=== PATIENT | female | born 1985 | race American Indian/Alaskan Native ===

== ENCOUNTER 2017-04-19 21:53 | Outpatient (CLI) | payer MEDICAID ==
[2017-04-19] MEDS ORDERED: LACTATED RINGERS 1,000 ML IV ONE (22:03)
[2017-04-19 22:46] VITALS: BP 130/68
[2017-04-19 22:58] LABS: Bacteria,Urine 1+ /HPF (Negative); Bilirubin,Urine NEG (Negative); Blood,Urine NEG (Negative); Color,Urine Yellow (Yellow); Mucus,Urine 1+ /HPF; Nitrite,Urine NEG (Negative); Urobilinogen,Urine < 2.0 mg/dL (<2.0)
[2017-04-19] MEDS ORDERED: IMODIUM PO ONE (23:00)
[2017-04-19] MEDS ORDERED: ZOFRAN IV ONE (23:05)
[2017-04-19] MEDS ORDERED: IMODIUM A-D PO ONE (23:08)
== END 2017-04-20 00:25 | disposition home or self-care (01) ==
LOC: TRG 21:53
PROVIDERS: ATTEND Obstetrics & Gynecology
DX: O21.2 Late vomiting of pregnancy (principal); Z3A.28 28 weeks gestation of pregnancy
CPT/HCPCS: 81001; 96360; 96361; 96374; J2405; J7120; 59025

== ENCOUNTER 2017-05-30 13:15 | Outpatient (CLI) | payer MEDICAID ==
[2017-05-30] MEDS ORDERED: LACTATED RINGERS 500 ML IV ONE (15:46)
[2017-05-30 17:43] LABS: Basophils % (Auto) 0.4 % (0.0-1.8); Eosinophils # (Auto) 0.1 K/mm3 (0.0-0.4); Eosinophils % (Auto) 1.3 % (0.0-4.3); Hematocrit 33.8 % (30.3-42.9); Hemoglobin 10.6 gm/dl (10.1-14.3); Lymphocytes # (Auto) 1.7 K/mm3 (1.2-5.4); Lymphocytes % (Auto) 23.3 % (13.4-35.0); Mean Corpuscular HGB Conc 31 % (30-34); Monocytes # (Auto) 0.5 K/mm3 (0.0-0.8); Monocytes % (Auto) 6.4 % (0.0-7.3); Red Blood Count 4.88 M/mm3 (3.65-5.03); Red Cell Distribution Width 17.2 % (13.2-15.2)
[2017-05-30 17:46] LABS: Mean Corpuscular Hemoglobin 22 pg (28-32); Mean Corpuscular Volume 69 fl (79-97); Platelet Count 218 K/mm3 (140-440)
--- NOTE | 2017-05-30 17:52 | Ultrasound Report ---
FINAL REPORT EXAM: US OB BPP WO NON-STRESS HISTORY: well being TECHNIQUE: Biophysical profile obstetrical ultrasound PRIORS: None. FINDINGS: LMP 10/01/2016 clinical Age: 34 W 3 D LMP EDC 10/01/2016 Biophysical profile scoring 2 movement 2 tone 2 breathing 2 fluid 2/2 overall score Cardiac motion: 137 BPM using M-mode doppler IMPRESSION: Single intrauterine viable with an approximate age of 34 weeks 3 days. Biophysical profile score is 8/8
--- NOTE | 2017-05-30 17:56 | Ultrasound Report ---
FINAL REPORT EXAM: US OB LIMITED HISTORY: well being TECHNIQUE: limited obstetrical ultrasound PRIORS: None. FINDINGS: LMP: 10/01/2016 clinical Age: 34 W 3 D LMP EDC 07/08/2017 Presentation: Cephalic Activity: Monitored Placental location: No evidence for placenta previa Cardiac motion: 137 BPM using M-mode doppler Amniotic Fluid Volume: Adequate CHERY 13.6 cm IMPRESSION: Single intrauterine viable with an approximate age of 34 weeks 3 days.
[2017-05-30 18:00] LABS: Alanine Aminotransferase 9 units/L (7-56); Uric Acid 4.8 mg/dL (3.5-7.6)
[2017-05-30 18:27] VITALS: BP 145/82
== END 2017-05-30 18:37 | disposition home or self-care (01) ==
LOC: TRG 13:15
PROVIDERS: ATTEND Obstetrics & Gynecology
DX: O47.03 False labor before 37 completed weeks of gestation, third trimester (principal); Z3A.34 34 weeks gestation of pregnancy
CPT/HCPCS: 36415; 59025; 76815; 76819; 82565; 83615; 84156; 84450; 84460; 84550; 85025; 86850; 86900; 86901

== ENCOUNTER 2017-06-16 17:47 | Outpatient (CLI) | payer MEDICAID ==
[2017-06-16] MEDS ORDERED: NORMOSOL-R PH 7.4 1,000 ML IV ONE (18:58)
[2017-06-16] MEDS ORDERED: BENADRYL PO NR (19:00)
[2017-06-16 19:02] LABS: Hematocrit 32.2 % (30.3-42.9); Hemoglobin 10.1 gm/dl (10.1-14.3); Mean Corpuscular HGB Conc 31 % (30-34); Platelet Count 213 K/mm3 (140-440); Red Blood Count 4.75 M/mm3 (3.65-5.03); Red Cell Distribution Width 17.5 % (13.2-15.2)
[2017-06-16 19:15] LABS: Bilirubin,Urine NEG (Negative); Blood,Urine NEG (Negative); Color,Urine Yellow (Yellow); Mean Corpuscular Hemoglobin 21 pg (28-32); Mean Corpuscular Volume 68 fl (79-97); Mucus,Urine FEW /HPF; Protein,Urine <15 mg/dL mg/dL (Negative); RBC,Urine < 1.0 /HPF (0.0-6.0); Urobilinogen,Urine < 2.0 mg/dL (<2.0)
[2017-06-16 19:19] LABS: Alanine Aminotransferase 10 units/L (7-56); Uric Acid 5.3 mg/dL (3.5-7.6)
[2017-06-16 19:58] VITALS: BP 148/92
[2017-06-16] MEDS ORDERED: TYLENOL PO ONE (20:00)
== END 2017-06-16 21:00 | disposition home or self-care (01) ==
LOC: TRG 17:47 → LD 17:48 → TRG 21:00
PROVIDERS: ATTEND Obstetrics & Gynecology
DX: O47.03 False labor before 37 completed weeks of gestation, third trimester (principal); Z3A.36 36 weeks gestation of pregnancy
CPT/HCPCS: 36415; 59025; 81001; 82565; 83615; 84450; 84460; 84550; 85027; 96360

== ENCOUNTER 2017-06-21 17:33 | Inpatient (IN) | payer MEDICAID ==
[2017-06-21] MEDS ORDERED: SUBLIMAZE IV PRN (17:55)
[2017-06-21] MEDS ORDERED: NARCAN 0.4 MG/1 ML IV PRN (17:55)
[2017-06-21] MEDS ORDERED: ZOFRAN IV PRN (17:55)
[2017-06-21] MEDS ORDERED: ePHEDrine SULFATE IV PRN (17:55)
[2017-06-21] MEDS ORDERED: BRETHINE SUB-Q PRN (17:55)
[2017-06-21] MEDS ORDERED: MINERAL OIL PO PRN (17:55)
[2017-06-21] MEDS ORDERED: BRETHINE IVP PRN (17:55)
[2017-06-21] MEDS ORDERED: STADOL IV PRN (17:55)
[2017-06-21] MEDS ORDERED: XYLOCAINE 2% INFILTRATI ONE (17:55)
[2017-06-21] MEDS ORDERED: PITOCin/NS 20 UNIT/1000ML DRIP 20 UNITS/1,000 ML BAG IV SCH (18:00)
[2017-06-21] MEDS ORDERED: PITOCin/NS 30 UNIT/500ML 30 UNITS/500 ML BAG IV SCH (18:00)
--- NOTE | 2017-06-21 18:04 | History and Physical Report ---
History of Present Illness Date of examination: 06/21/17 Date of admission: 06/21/17 Chief complaint: Scheduled for induction, contractions History of present illness: Pt is a 32 year old -Japanese female KYE 07/08/17 at 37w4d who presents for induction of labor secondary to gestational hypertension and morbid obesity. She reports contractions since last night that were getting worse so the patient presented 2 hours prior to her induction time. She denies vaginal bleeding or leakage of fluid. She has had care at [facility] since 7 wks complicated by hypertension, morbid obesity, h/o severe hemorrhage, and genital herpes without lesion or prodrome. She is GBS negative. 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: chlamydia (remote from ), herpes, trichomonas (remote from ) Family/Genetic History: heart disease, hypertension Social history: no significant social history - Obstetrical History Expected Date of Delivery: 07/08/17 Actual Gestation: 37 Week(s) 4 Day(s) : 4 Para: 3 Hx # Term Pregnancies: 3 Number of Pregnancies: 0 Spontaneous Abortions: 0 Induced : 0 Number of Living Children: 3 Medications and Allergies Allergies Allergy/AdvReac Type Severity Reaction Status Date / Time No Known Allergies Allergy Verified 11/29/14 09:18 Home Medications Medication Instructions Recorded Confirmed Last Taken Type Aspirin 1 tab PO DAILY 06/16/17 06/16/17 Unknown History Review of Systems All systems: negative - Vital Signs Vital signs: Vital Signs Pulse BP 110 H 118/77 06/21/17 17:55 06/21/17 17:55 Temp Pulse Resp BP Pulse Ox 110 H 118/77 06/21/17 17:55 06/21/17 17:55 - Physical Exam Breasts: Positive: deferred Cardiovascular: Regular rate Lungs: Positive: Clear to auscultation Abdomen: Positive: soft (obesity, gravid ) Genitourinary (Female): Positive: normal external genitalia Uterus: Positive: enlarged (gravid) Extremities: Positive: normal - Obstetrical FHR: auscultation normal Uterine Contraction Monitor Mode: External Cervical Dilatation: 3 Cervical Effacement Percentage: 60 station: -2 Uterine Contraction Pattern: Regular Uterine Tone Measurement Phase: Resting Uterine Contraction Intensity: Mild Results All other labs normal. Assessment and Plan A: IUP at 37w5d Gestational hypertension Morbid obesity H/o severe hemorrhage Genital herpes without lesion or prodrome GBS negative P: PIH labs Routine admission labs Pitocin induction
[2017-06-21 18:56] LABS: Bacteria,Urine 4+ /HPF (Negative); Mucus,Urine 2+ /HPF; Sperm,Urine 1+ /HPF (NP)
[2017-06-21 18:57] LABS: Bilirubin,Urine NEG (Negative); Blood,Urine NEG (Negative); Color,Urine Yellow (Yellow)
[2017-06-21] MEDS: NORMOSOL-R PH 7.4 1,000 ML IV SCH ×3 (19:05→23:21)
[2017-06-21 19:16] LABS: Hemoglobin 13.5 gm/dl (10.1-14.3); Mean Corpuscular HGB Conc 31 % (30-34); Red Blood Count 6.44 M/mm3 (3.65-5.03); Red Cell Distribution Width 17.9 % (13.2-15.2)
[2017-06-21 19:18] LABS: Mean Corpuscular Hemoglobin 21 pg (28-32); Mean Corpuscular Volume 67 fl (79-97); Platelet Count 175 K/mm3 (140-440)
[2017-06-21 19:22] LABS: Alanine Aminotransferase 11 units/L (7-56)
[2017-06-21 19:36] LABS: Uric Acid 5.6 mg/dL (3.5-7.6)
[2017-06-21 22:14] LABS: Amphetamine Screen,Urine PRESUMPTIVE NEGATIVE; Benzodiazepines Screen,Urine PRESUMPTIVE NEGATIVE; Cannabinoid Screen,Urine PRESUMPTIVE NEGATIVE; Cocaine Screen,Urine PRESUMPTIVE NEGATIVE; Methadone Screen,Urine PRESUMPTIVE NEGATIVE; Opiate Screen,Urine PRESUMPTIVE NEGATIVE
[2017-06-21] MEDS ORDERED: BENADRYL IV PRN (23:22)
[2017-06-21] MEDS ORDERED: fentaNYL-BUPIV 2 MCG/ML-0.125% 200 MCG/100 ML BAG EPIDURAL SCH (23:45)
[2017-06-22] MEDS ORDERED: HEMABATE IM ONE (00:50)
[2017-06-22] MEDS ORDERED: CYTOTEC ONE (00:50)
[2017-06-22] MEDS ORDERED: CYTOTEC PR ONE (00:52)
--- NOTE | 2017-06-22 00:56 | Event Note ---
Date: 06/22/17 Pt comfortable with epidural. FHTs Category I. SVE: /-2. AROM- clear fluid. Continue to monitor closely.
--- NOTE | 2017-06-22 00:57 | Event Note ---
Date: 06/22/17 Pt c/o increased pressure. SVE: 100/-2. Continue to monitor closely. Misoprostol to the bedside for history of post hemorrhage with last delivery.
--- NOTE | 2017-06-22 01:31 | Procedure Note ---
OB Delivery Note - Delivery Date of Delivery: 06/22/17 Surgeon: RENA GARCIA Estimated blood loss: 300cc - Vaginal Delivery presentation: vertex Delivery position: OA Intrapartum events: gestational hypertension Delivery induction: oxytocin Delivery augmentation: rupture of membranes, pitocin Delivery monitor: external FHT, external uterine Route of delivery: Delivery placenta: spontaneous Delivery cord: 3 umbilical vessels Episiotomy: none Delivery laceration: none Anesthesia: epidural Delivery comments: Pt progressed rapidly from 7 cm to complete/complete/+2 and pushed to deliver a viable male over intact perineum via under epidural anesthesia. Head delivered in JANEY position, rapidly followed by shoulders and body. placed on maternal abdomen and bulb suctioned. Cord clamped and cut and handed to nurse in attendance. Placenta delivered spontaneously (3VC, intact). Vagina and perineum explored. No lacerations noted. Misoprostol 800 mcg placed per rectum prophylactically secondary to h/o hemorrhage. EBL 300 mL. - A at 1 minute: 8 at 5 minutes: 9 Gender: Male (3007g (6lb 10 oz) @ 0108 am)
[2017-06-22] MEDS ORDERED: ROBITUSSIN PO PRN (01:34)
[2017-06-22] MEDS ORDERED: LANSINOH TP PRN ×2 (05:43)
[2017-06-22] MEDS ORDERED: PHENERGAN PO PRN (05:43)
[2017-06-22] MEDS ORDERED: BENADRYL PO PRN (05:43)
[2017-06-22] MEDS ORDERED: MILK OF MAGNESIA PO PRN (05:43)
[2017-06-22] MEDS ORDERED: ZOFRAN IV PRN (05:43)
[2017-06-22] MEDS ORDERED: SODIUM CHLORIDE FLUSH SYRINGE 10 ML IV NR (05:43)
[2017-06-22] MEDS ORDERED: PITOCin/NS 20 UNIT/1000ML DRIP 20 UNITS/1,000 ML BAG IV SCH (05:43)
[2017-06-22] MEDS ORDERED: TYLENOL PO PRN (05:43)
[2017-06-22] MEDS ORDERED: NORCO 5/325 PO PRN (05:43)
[2017-06-22] MEDS ORDERED: TUCKS PAD TP PRN (05:43)
[2017-06-22] MEDS ORDERED: PHENERGAN PR PRN (05:43)
[2017-06-22] MEDS ORDERED: DULCOLAX PR PRN (05:43)
[2017-06-22] MEDS: MOTRIN PO SCH ×4 (07:37→23:31)
[2017-06-22] MEDS: FEOSOL PO SCH ×2 (11:26→22:02)
[2017-06-22] MEDS: PRENATAL VITAMIN PO SCH (11:27)
[2017-06-22 14:29] LABS: Hemoglobin 9.6 gm/dl (10.1-14.3)
[2017-06-23] MEDS: MOTRIN PO SCH ×2 (05:13→12:52)
[2017-06-23] MEDS ORDERED: BOOSTRIX IM ONE (06:00)
[2017-06-23] MEDS ORDERED: M-M-R II VACCINE SUB-Q ONE (06:00)
[2017-06-23] MEDS: FEOSOL PO SCH (10:19)
[2017-06-23] MEDS: PRENATAL VITAMIN PO SCH (10:19)
--- NOTE | 2017-06-23 14:32 | Progress Note ---
Assessment and Plan O: VSS AF PP H/H: 10.8/33.8 A: Stable PP Day 1 P: Routine PP orders Subjective - Subjective Date of service: 06/23/17 Patient reports: appetite normal, voiding normally, pain well controlled, flatus , ambulating normally : doing well Objective - Vital Signs Latest vital signs: Vital Signs Temp Pulse Resp BP Pulse Ox 06/23/17 08:20 98.2 F 87 20 129/76 98 06/23/17 05:13 20 06/23/17 00:00 98.4 F 88 20 100/60 06/22/17 23:31 20 06/22/17 16:27 97.5 F L 89 20 138/89 100 Intake and Output 06/22/17 06/23/17 06/23/17 22:59 06:59 14:59 Intake Total 240 120 360 Balance 240 120 360 Intake: Oral 240 120 360 Other: Total, Intake Amount 240 120 120 # Voids Void 1 1 1 - Exam Breasts: Present: deferred Lungs: Present: Normal air movement Abdomen: Present: normal appearance, soft. Absent: distention Uterus: Present: normal, firm Extremities: Present: normal - Labs Labs: Abnormal lab results 06/22/17 Range/Units 14:11 Hgb 9.6 L D (10.1-14.3) gm/dl
--- NOTE | 2017-06-23 14:40 | Discharge Summary ---
Providers - Providers Date of Admission: 06/21/17 17:59 Date of discharge: 06/23/17 Attending physician: RENA GARCIA 06/22/17 05:43 Consult to [facility] [CONS] Routine Reason For Exam: assistance with , SNS Primary care physician: RODOLFO ANTOINE MD Hospitalization Reason for admission: IUP at term Delivery: Episiotomy: none Laceration: none Other procedures: none complications: none Discharge diagnosis: IUP at term delivered [place] baby: male Condition at discharge: Good Disposition: DC-01 TO HOME OR SELFCARE Plan - Discharge Medications Prescriptions: HYDROcodone/ACETAMINOPHEN [[place] 5-325 Tablet] 1 each PO Q6H PRN #20 tablet PRN Reason: Pain Ibuprofen [Motrin 800 MG tab] 800 mg PO Q6H #30 tablet - Provider Discharge Summary Activity: routine, no sex for 6 weeks, no heavy lifting 4 weeks, no strenuous exercise Diet: routine Instructions: routine Additional instructions: [] Smoking cessation referral if applicable(refer to patient education folder for contact #) [] Refer to [facility] Booklet Call your doctor immediately for: * Fever > 100.5 * Heavy vaginal bleeding ( >1 pad per hour) * Severe persistent headache * Shortness of breath * Reddened, hot, painful area to leg or breast * Drainage or odor from incision. * Keep incision clean and dry at all times and follow doctor's instructions regarding bathing/showering - Follow up plan Follow up: RODOLFO ANTOINE MD [Primary Care Provider] - 14 Days (RTO 4 weeks. Call office to schedule circumcision)
[2017-06-23 17:28] VITALS: BP 136/82
== END 2017-06-23 17:10 | disposition home or self-care (01) | DRG 774 ==
LOC: TRG 17:33 → LD 17:59 → OB 06-22 03:48
PROVIDERS: ADMIT Obstetrics & Gynecology; ATTEND Obstetrics & Gynecology
PROC: 10907ZC Drainage of Amniotic Fluid, Therapeutic from Products of Conception, Via Natural or Artificial Opening (ICD-10-PCS; principal; 2017-06-22)
PROC: 10E0XZZ Delivery of Products of Conception, External Approach (ICD-10-PCS; 2017-06-22)
PROC: 3E0R3BZ Introduction of Anesthetic Agent into Spinal Canal, Percutaneous Approach (ICD-10-PCS; 2017-06-22)
PROC: 00HU33Z Insertion of Infusion Device into Spinal Canal, Percutaneous Approach (ICD-10-PCS; 2017-06-22)
PROC: 3E033VJ Introduction of Other Hormone into Peripheral Vein, Percutaneous Approach (ICD-10-PCS; 2017-06-22)
DX: O13.4 Gestational [pregnancy-induced] hypertension without significant proteinuria, complicating childbirth (principal); O99.214 Obesity complicating childbirth; Z37.0 Single live birth; Z3A.37 37 weeks gestation of pregnancy; E66.01 Morbid (severe) obesity due to excess calories; Z68.43 Body mass index [BMI] 50.0-59.9, adult; O98.32 Other infections with a predominantly sexual mode of transmission complicating childbirth; A60.00 Herpesviral infection of urogenital system, unspecified
CPT/HCPCS: 36415; 80307; 81001; 82565; 83615; 84450; 84460; 84550; 85014; 85018; 85027; 86592; 86850; 86900; 86901; 88307; J0595; J2590